=== PATIENT | female | born 1985 | race Caucasian/White ===

== ENCOUNTER 2021-03-19 17:39 | Emergency (ER) | payer OTHER, MEDICAID, SELFPAY ==
[2021-03-19 18:01] VITALS: PULSE 93; RESP 20; TEMP 37.1; O2SAT 100
--- NOTE | 2021-03-19 18:22 | ED.PSYCH ---
HPI - Psych <Adrien Barron DO - Last Filed: 03/22/21 17:27> General Chief Complaint: Psychiatric Symptoms Stated Complaint: Psych Time Seen by Provider: 03/19/21 18:15 Source: police Mode of arrival: Ambulatory Limitations: altered mental status History of Present Illness HPI Narrative: 35-year-old female former smoker with bipolar disorder presents with police and mental health professionals for evaluation of suicidal ideation. The patient has known bipolar disorder but has not been taking her medications and per her father has been using alcohol instead. Father states patient was prepared to consume all of her medications together along with alcohol but was stopped by her friend. Also per father she took a bottle of vodka and left last night and was not seen until today. Patient currently denies SI/HI but is confused, disheveled and unware of situation. She has been seen and evaluated by a mental health provider who request dispatch of the DCR for I TA due to grave disability and this is the plan upon medical clearance. Related Data Home Medications Medication Instructions Recorded Confirmed lactobacillus combination no.8 3 3,000 mmu cells PO DAILY 03/24/20 12/13/20 billion cell capsule Previous Rx's Medication Instructions Recorded hydroxyzine HCl 10 mg tablet See Rx Instructions PO BID PRN #90 08/16/20 tab lithium carbonate 150 mg capsule 150 mg PO DAILY #30 cap 12/05/20 lamotrigine 150 mg tablet 150 mg PO DAILY #30 tab 01/25/21 Allergies Allergy/AdvReac Type Severity Reaction Status Date / Time amoxicillin Allergy Intermediate Rash Verified 03/20/21 08:06 cefaclor [From [facility]] Allergy Intermediate rash Verified 10/10/20 08:51 Penicillins [PENICILLINS] Allergy Intermediate rash Verified 10/10/20 08:51 Review of Systems <Adrien Barron DO - Last Filed: 03/22/21 17:27> Review of Systems ROS Unobtainable: Unobtainable due to mental status/LOC <Mora Jones MD - Last Filed: 03/20/21 17:08> Constitutional Constitutional: Denies chills, Denies fatigue, Denies fever(s), Denies frequent falls, Denies lethargy and Denies weakness Eyes Eyes: Denies change in vision, Denies eye discharge, Denies irritation and Denies loss of vision ENT Ears, Nose, Mouth, and Throat: Denies change in voice, Denies dizziness, Denies neck pain, Denies sore throat and Denies throat swelling Cardiovascular Cardiovascular: Denies chest pain, Denies irregular heart rhythm, Denies lightheadedness, Denies palpitations, Denies dyspnea, Denies dyspnea on exertion and Denies orthopnea Respiratory Respiratory: Denies cough, Denies dyspnea, Denies dyspnea on exertion and Denies wheezing Gastrointestinal Gastrointestinal: Denies abdominal pain, Denies change in bowel habits, Denies diarrhea, Denies nausea and Denies vomiting Musculoskeletal Musculoskeletal: Denies neck pain and Denies numbness Integumentary/Breasts Skin/Breast: Denies pruritus, Denies erythema, Denies rash and Denies wounds Neurologic Neurologic: Denies behavioral changes, Denies confusion, Denies dizziness, Denies frequent falls, Denies loss of vision, Denies numbness and Denies weakness Psychiatric Psychiatric: Denies anxiety, Denies behavioral changes, Denies confusion, Denies depression, Denies homicidal ideation and Denies suicidal ideation Endocrine Endocrine: Denies fatigue, Denies flushing and Denies palpitations Hematologic/Lymphatic Hematologic/Lymphatic: Denies easy bruising Allergic/Immunologic Allergic/Immunologic: Denies urticaria, Denies throat swelling and Denies wheezing Patient History <Adrien Barron DO - Last Filed: 03/22/21 17:27> Social History Smoking Status: Former smoker Smoking Status: Former smoker Exam <Adrien Barron DO - Last Filed: 03/22/21 17:27> Narrative Exam Narrative: GENERAL: [35] year old patient appears stated age. Disheveled, uncooperative, poor eye contact HEAD: Atraumatic. Normocephalic. EYES: Pupils equal round and reactive. Extraocular motions intact. No scleral icterus. No injection or drainage. ENT: Nose without bleeding, purulent drainage. Throat without erythema, tonsillar hypertrophy or exudate. Airway patent. NECK: Trachea midline. Non tender CARDIOVASCULAR: Regular rate and rhythm without murmurs, gallops, or rubs. RESPIRATORY: Clear to auscultation. Breath sounds equal bilaterally. No wheezes, rales, or rhonchi. GASTROINTESTINAL: Abdomen soft, non-tender, nondistended. EXTREMITIES: No edema or joint tenderness. BACK: Nontender without deformity or crepitance. No flank tenderness. NEURO: Confused about circumstances, knows her name unaware of days SKIN: No rash or erythema of visible areas Initial Vital Signs Initial Vital Signs: Vital Signs Temperature 98.8 F 03/19/21 18:01 Pulse Rate 93 H 03/19/21 18:01 Respiratory Rate 20 03/19/21 18:01 Pulse Oximetry 100 03/19/21 18:01 <Mora Jones MD - Last Filed: 03/20/21 17:08> Initial Vital Signs Initial Vital Signs: Vital Signs Temperature 98.8 F 03/19/21 18:01 Pulse Rate 93 H 03/19/21 18:01 Respiratory Rate 20 03/19/21 18:01 Pulse Oximetry 100 03/19/21 18:01 Const General: cooperative and well developed Nutritional Appearance: well nourished HENMT Head: normocephalic and atraumatic Ears: external ears normal and TM's normal bilaterally Nose: external nose normal and No nasal discharge Face and sinus: sinuses nontender, face symmetric, no sinus tenderness and No dry mucous membranes Mouth: oral mucosae normal and moist mucous membranes Teeth and gingiva: dentition normal Throat: tonsils normal and uvula midline Eyes General: appearance normal, both eyes and all related structures Eyelids: eyelids normal Conjunctivae: conjunctivae normal Sclera: sclerae normal Pupils: PERRL EOM: EOM intact bilaterally Neck Neck: normal visual inspection, trachea midline, No lymphadenopathy, No midline deformity and No JVD Lymphatic: No lymphedema Chest Chest: normal inspection of the chest Resp Effort & Inspection: normal respiratory effort, able to speak in complete sentences, no respiratory distress and no use of accessory muscles Auscultation: clear to auscultation bilaterally, no rales, no rhonchi and no wheezes Cardio Rate: regular rate Rhythm: regular rhythm Heart Sounds: no click, no gallops, no murmurs and no rubs Pulses: normal peripheral pulses GI Inspection: non-distended Palpation: soft, no hepatosplenomegaly, No guarding, No pulsatile mass and No tender Auscultation: normal bowel sounds Back/Spine/Pelvis Back: No CVA tenderness Cervical Spine: cervical ROM normal and No pain with cervical ROM Thoracic/Lumbar Spine: thoracic and lumbar spine normal to inspection Skin General: no rashes or lesions noted, No jaundice and No petechiae Neuro General: patient alert, patient oriented x3, gait normal and no focal motor deficits Speech: speech normal Extrem General: full ROM, no clubbing, cyanosis or edema, no pedal edema and no calf tenderness Psych Appearance: well kempt Mental Status: mental status grossly normal Attitude: cooperative Thought Content: normal and suicidality Judgment: judgment good Course <Adrien Barron DO - Last Filed: 03/22/21 17:27> Course Course Narrative: Seen and evaluated very early on by mental health provider with police. I agree with her assessment that the patient is gravely disabled and would benefit from placement into a mental health facility. She has been medically cleared, is not voluntary and I have spoken with the DCR was obtaining her paperwork and will move forward Orders Ordered: Discontinued Medications Lamotrigine (Lamotrigine 100 Mg Tablet) 150 mg PO DAILY [facility] Last Admin: 03/20/21 08:21 Dose: 150 mg Documented by: DIAMOND [place] Carbonate ([place] 150 Mg Ir Capsule) 150 mg PO DAILY [facility] Last Admin: 03/20/21 08:21 Dose: 150 mg Documented by: DIAMOND Consultations Consultation #1: DCR has evaluated patient and plans to detain, many attempts at finding a bed, but none available tonight. Vital Signs Vital signs: Vital Signs - 8 hr 03/20/21 08:57 Pulse Rate 80 Respiratory Rate 16 Pulse Oximetry 96 <Mora Jones MD - Last Filed: 03/20/21 17:08> Orders Ordered: Discontinued Medications Lamotrigine (Lamotrigine 100 Mg Tablet) 150 mg PO DAILY [facility] Last Admin: 03/20/21 08:21 Dose: 150 mg Documented by: DIAMOND [place] Carbonate ([place] 150 Mg Ir Capsule) 150 mg PO DAILY [facility] Last Admin: 03/20/21 08:21 Dose: 150 mg Documented by: DIAMOND Reevaluation(s) Reevaluation #1: Care is assumed this morning. Patient had a quiet evening. Medical records including recent psychiatric visits are reviewed. As of December 13 patient was taking 150 mg of lamotrigine and 150 mg of lithium, 1-2 at HS, with a discussion of addition of quetiapine if she has increasing difficulty with sleep. Diagnoses include bipolar 1 disorder, obsessive-compulsive disorder, generalized anxiety disorder Will restart both lamotrigine and lithium this morning while were waiting to complete her full assessment and find a safe place for disposition from the emergency department Time: 07:49 Vital Signs Vital signs: Vital Signs - 8 hr 03/20/21 08:57 Pulse Rate 80 Respiratory Rate 16 Pulse Oximetry 96 MDM - Psych <Adrien Barron DO - Last Filed: 03/22/21 17:27> Lab Data Result diagrams: 03/19/21 18:21 03/19/21 18:21 Labs: Lab Results 03/19/21 03/19/21 03/19/21 Range/Units 18:21 18:21 18:21 WBC 11.4 H (4.5-11.0) X10^3/uL RBC 4.59 (4.0-5.2) X10^6/uL Hgb 14.1 (12.0-16.0) g/dL Hct 42.2 (36-46) % MCV 92.0 (80-100) fL MCH 30.8 (26-34) PG MCHC 33.5 (30-36) % RDW 13.2 (11.6-14.8) % Plt Count 289 (150-400) X10^3/uL Neut % (Auto) 76.5 H (50-75) % Lymph % (Auto) 13.2 L (25-40) % [place] % (Auto) 8.8 (3-14) % Eos % (Auto) 1.0 L (2-4) % Baso % (Auto) 0.5 (0-2) % Neut # (Auto) 8700 H (1530-2889) /uL Lymph # (Auto) 1500 (3782-2528) /uL [place] # (Auto) 1000 H (0-900) /uL Eos # (Auto) 100 (0-450) /uL Baso # (Auto) 100 (0-100) /uL Sodium 138 (137-145) mmol/L Potassium 4.1 (3.4-5.1) mmol/L Chloride 104 (98-107) mmol/L Carbon Dioxide 25 (22-32) mmol/L BUN 5 L (7-17) mg/dL Creatinine 0.61 (0.52-1.04) mg/dL Estimated GFR > 60.0 (>60) mL/min BUN/Creatinine Ratio 8.2 (6-22) Glucose 108 H (70-100) mg/dL Calcium 10.2 (8.4-10.2) mg/dL Total Bilirubin 0.8 (0.2-1.3) mg/dL AST 29 (14-36) IU/L ALT 19 (<35) IU/L Alkaline Phosphatase 75 (38-126) U/L Total Protein 7.9 (6.3-8.2) g/dL Albumin 4.7 (3.5-5.0) g/dL Globulin 3.2 (1.7-4.1) g/dL Albumin/Globulin Ratio 1.5 (1.0-2.8) TSH 1.47 (0.47-4.68) uIU/mL Free T4 1.20 (0.78-2.19) ng/dL Serum , Qual (Negative) Urine Color Urine Appearance Urine pH (4.5-8.0) Ur Specific [place] (1.000-1.035) Urine Protein (Negative) Urine Glucose (UA) (Negative) g/dL Urine Ketones (NEGATIVE) Urine Occult Blood (Negative) Urine Nitrate (Negative) Urine Bilirubin (NEGATIVE) Urine Urobilinogen (0.2) E.U./dL Ur Leukocyte Esterase (NEGATIVE) Urine RBC (0-5/HPF) Urine WBC (0-5/HPF) Ur Squamous Epith Cells (0-5/HPF) Amorphous Sediment Urine Bacteria (None) Hyaline Casts (None) Urine Mucus (Negative) Ur Culture Indicated? Salicylates < 1.0 (<20) mg/dL U Opiates 300ng/mL cut (Negative) Ur Oxycodone Screen (Negative) Urine Methadone Screen (Negative) Acetaminophen < 10 L (10-30) ug/mL Ur Barbiturates Screen (Negative) U Tricyclic Antidepress (Negative) Ur Phencyclidine Scrn (Negative) Ur Amphetamines Screen (Negative) U Methamphetamines Scrn (Negative) Ur MDMA Scrn (Ecstasy) (Negative) U Benzodiazepines Scrn (Negative) [place] < 0.2 L (0.6-1.2) mmol/L Urine Cocaine Screen (Negative) U Marijuana (THC) Screen (Negative) Ethyl Alcohol < 10 ( - 10) mg/dL SARS-CoV-2 (PCR) (Negative) 03/19/21 03/19/21 03/19/21 Range/Units 18:21 19:48 21:53 WBC (4.5-11.0) X10^3/uL RBC (4.0-5.2) X10^6/uL Hgb (12.0-16.0) g/dL Hct (36-46) % MCV (80-100) fL MCH (26-34) PG MCHC (30-36) % RDW (11.6-14.8) % Plt Count (150-400) X10^3/uL Neut % (Auto) (50-75) % Lymph % (Auto) (25-40) % [place] % (Auto) (3-14) % Eos % (Auto) (2-4) % Baso % (Auto) (0-2) % Neut # (Auto) (9511-9422) /uL Lymph # (Auto) (4403-9198) /uL [place] # (Auto) (0-900) /uL Eos # (Auto) (0-450) /uL Baso # (Auto) (0-100) /uL Sodium (137-145) mmol/L Potassium (3.4-5.1) mmol/L Chloride (98-107) mmol/L Carbon Dioxide (22-32) mmol/L BUN (7-17) mg/dL Creatinine (0.52-1.04) mg/dL Estimated GFR (>60) mL/min BUN/Creatinine Ratio (6-22) Glucose (70-100) mg/dL Calcium (8.4-10.2) mg/dL Total Bilirubin (0.2-1.3) mg/dL AST (14-36) IU/L ALT (<35) IU/L Alkaline Phosphatase (38-126) U/L Total Protein (6.3-8.2) g/dL Albumin (3.5-5.0) g/dL Globulin (1.7-4.1) g/dL Albumin/Globulin Ratio (1.0-2.8) TSH (0.47-4.68) uIU/mL Free T4 (0.78-2.19) ng/dL Serum , Qual Negative (Negative) Urine Color Urine Appearance Urine pH (4.5-8.0) Ur Specific [place] (1.000-1.035) Urine Protein (Negative) Urine Glucose (UA) (Negative) g/dL Urine Ketones (NEGATIVE) Urine Occult Blood (Negative) Urine Nitrate (Negative) Urine Bilirubin (NEGATIVE) Urine Urobilinogen (0.2) E.U./dL Ur Leukocyte Esterase (NEGATIVE) Urine RBC (0-5/HPF) Urine WBC (0-5/HPF) Ur Squamous Epith Cells (0-5/HPF) Amorphous Sediment Urine Bacteria (None) Hyaline Casts (None) Urine Mucus (Negative) Ur Culture Indicated? Salicylates (<20) mg/dL U Opiates 300ng/mL cut Negative (Negative) Ur Oxycodone Screen Negative (Negative) Urine Methadone Screen Negative (Negative) Acetaminophen (10-30) ug/mL Ur Barbiturates Screen Negative (Negative) U Tricyclic Antidepress Negative (Negative) Ur Phencyclidine Scrn Negative (Negative) Ur Amphetamines Screen Negative (Negative) U Methamphetamines Scrn Negative (Negative) Ur MDMA Scrn (Ecstasy) Negative (Negative) U Benzodiazepines Scrn Negative (Negative) [place] (0.6-1.2) mmol/L Urine Cocaine Screen Negative (Negative) U Marijuana (THC) Screen Negative (Negative) Ethyl Alcohol ( - 10) mg/dL SARS-CoV-2 (PCR) Negative (Negative) 03/19/21 Range/Units 21:53 WBC (4.5-11.0) X10^3/uL RBC (4.0-5.2) X10^6/uL Hgb (12.0-16.0) g/dL Hct (36-46) % MCV (80-100) fL MCH (26-34) PG MCHC (30-36) % RDW (11.6-14.8) % Plt Count (150-400) X10^3/uL Neut % (Auto) (50-75) % Lymph % (Auto) (25-40) % [place] % (Auto) (3-14) % Eos % (Auto) (2-4) % Baso % (Auto) (0-2) % Neut # (Auto) (8362-3364) /uL Lymph # (Auto) (4241-3096) /uL [place] # (Auto) (0-900) /uL Eos # (Auto) (0-450) /uL Baso # (Auto) (0-100) /uL Sodium (137-145) mmol/L Potassium (3.4-5.1) mmol/L Chloride (98-107) mmol/L Carbon Dioxide (22-32) mmol/L BUN (7-17) mg/dL Creatinine (0.52-1.04) mg/dL Estimated GFR (>60) mL/min BUN/Creatinine Ratio (6-22) Glucose (70-100) mg/dL Calcium (8.4-10.2) mg/dL Total Bilirubin (0.2-1.3) mg/dL AST (14-36) IU/L ALT (<35) IU/L Alkaline Phosphatase (38-126) U/L Total Protein (6.3-8.2) g/dL Albumin (3.5-5.0) g/dL Globulin (1.7-4.1) g/dL Albumin/Globulin Ratio (1.0-2.8) TSH (0.47-4.68) uIU/mL Free T4 (0.78-2.19) ng/dL Serum , Qual (Negative) Urine Color Yellow Urine Appearance Clear Urine pH 6.0 (4.5-8.0) Ur Specific [place] 1.025 (1.000-1.035) Urine Protein Negative (Negative) Urine Glucose (UA) Negative (Negative) g/dL Urine Ketones Negative (NEGATIVE) Urine Occult Blood Trace-intact (Negative) Urine Nitrate Negative (Negative) Urine Bilirubin Negative (NEGATIVE) Urine Urobilinogen 0.2 (0.2) E.U./dL Ur Leukocyte Esterase Negative (NEGATIVE) Urine RBC None seen (0-5/HPF) Urine WBC None seen (0-5/HPF) Ur Squamous Epith Cells 5-10 /hpf H (0-5/HPF) Amorphous Sediment 2+ Urine Bacteria Few (2-10) H (None) Hyaline Casts 0-1/lpf (None) Urine Mucus 2+ H (Negative) Ur Culture Indicated? Cult not indicated Salicylates (<20) mg/dL U Opiates 300ng/mL cut (Negative) Ur Oxycodone Screen (Negative) Urine Methadone Screen (Negative) Acetaminophen (10-30) ug/mL Ur Barbiturates Screen (Negative) U Tricyclic Antidepress (Negative) Ur Phencyclidine Scrn (Negative) Ur Amphetamines Screen (Negative) U Methamphetamines Scrn (Negative) Ur MDMA Scrn (Ecstasy) (Negative) U Benzodiazepines Scrn (Negative) [place] (0.6-1.2) mmol/L Urine Cocaine Screen (Negative) U Marijuana (THC) Screen (Negative) Ethyl Alcohol ( - 10) mg/dL SARS-CoV-2 (PCR) (Negative) <Mora Jones MD - Last Filed: 03/20/21 17:08> Medical Records Attestation: I reviewed the patient's medical records. Lab Data Attestation: I reviewed the patient's lab results. Labs: Lab Results 03/19/21 03/19/21 03/19/21 Range/Units 18:21 18:21 18:21 WBC 11.4 H (4.5-11.0) X10^3/uL RBC 4.59 (4.0-5.2) X10^6/uL Hgb 14.1 (12.0-16.0) g/dL Hct 42.2 (36-46) % MCV 92.0 (80-100) fL MCH 30.8 (26-34) PG MCHC 33.5 (30-36) % RDW 13.2 (11.6-14.8) % Plt Count 289 (150-400) X10^3/uL Neut % (Auto) 76.5 H (50-75) % Lymph % (Auto) 13.2 L (25-40) % [place] % (Auto) 8.8 (3-14) % Eos % (Auto) 1.0 L (2-4) % Baso % (Auto) 0.5 (0-2) % Neut # (Auto) 8700 H (2137-2527) /uL Lymph # (Auto) 1500 (0621-2073) /uL [place] # (Auto) 1000 H (0-900) /uL Eos # (Auto) 100 (0-450) /uL Baso # (Auto) 100 (0-100) /uL Sodium 138 (137-145) mmol/L Potassium 4.1 (3.4-5.1) mmol/L Chloride 104 (98-107) mmol/L Carbon Dioxide 25 (22-32) mmol/L BUN 5 L (7-17) mg/dL Creatinine 0.61 (0.52-1.04) mg/dL Estimated GFR > 60.0 (>60) mL/min BUN/Creatinine Ratio 8.2 (6-22) Glucose 108 H (70-100) mg/dL Calcium 10.2 (8.4-10.2) mg/dL Total Bilirubin 0.8 (0.2-1.3) mg/dL AST 29 (14-36) IU/L ALT 19 (<35) IU/L Alkaline Phosphatase 75 (38-126) U/L Total Protein 7.9 (6.3-8.2) g/dL Albumin 4.7 (3.5-5.0) g/dL Globulin 3.2 (1.7-4.1) g/dL Albumin/Globulin Ratio 1.5 (1.0-2.8) TSH 1.47 (0.47-4.68) uIU/mL Free T4 1.20 (0.78-2.19) ng/dL Serum , Qual (Negative) Urine Color Urine Appearance Urine pH (4.5-8.0) Ur Specific [place] (1.000-1.035) Urine Protein (Negative) Urine Glucose (UA) (Negative) g/dL Urine Ketones (NEGATIVE) Urine Occult Blood (Negative) Urine Nitrate (Negative) Urine Bilirubin (NEGATIVE) Urine Urobilinogen (0.2) E.U./dL Ur Leukocyte Esterase (NEGATIVE) Urine RBC (0-5/HPF) Urine WBC (0-5/HPF) Ur Squamous Epith Cells (0-5/HPF) Amorphous Sediment Urine Bacteria (None) Hyaline Casts (None) Urine Mucus (Negative) Ur Culture Indicated? Salicylates < 1.0 (<20) mg/dL U Opiates 300ng/mL cut (Negative) Ur Oxycodone Screen (Negative) Urine Methadone Screen (Negative) Acetaminophen < 10 L (10-30) ug/mL Ur Barbiturates Screen (Negative) U Tricyclic Antidepress (Negative) Ur Phencyclidine Scrn (Negative) Ur Amphetamines Screen (Negative) U Methamphetamines Scrn (Negative) Ur MDMA Scrn (Ecstasy) (Negative) U Benzodiazepines Scrn (Negative) [place] < 0.2 L (0.6-1.2) mmol/L Urine Cocaine Screen (Negative) U Marijuana (THC) Screen (Negative) Ethyl Alcohol < 10 ( - 10) mg/dL SARS-CoV-2 (PCR) (Negative) 03/19/21 03/19/21 03/19/21 Range/Units 18:21 19:48 21:53 WBC (4.5-11.0) X10^3/uL RBC (4.0-5.2) X10^6/uL Hgb (12.0-16.0) g/dL Hct (36-46) % MCV (80-100) fL MCH (26-34) PG MCHC (30-36) % RDW (11.6-14.8) % Plt Count (150-400) X10^3/uL Neut % (Auto) (50-75) % Lymph % (Auto) (25-40) % [place] % (Auto) (3-14) % Eos % (Auto) (2-4) % Baso % (Auto) (0-2) % Neut # (Auto) (1865-5676) /uL Lymph # (Auto) (2961-0563) /uL [place] # (Auto) (0-900) /uL Eos # (Auto) (0-450) /uL Baso # (Auto) (0-100) /uL Sodium (137-145) mmol/L Potassium (3.4-5.1) mmol/L Chloride (98-107) mmol/L Carbon Dioxide (22-32) mmol/L BUN (7-17) mg/dL Creatinine (0.52-1.04) mg/dL Estimated GFR (>60) mL/min BUN/Creatinine Ratio (6-22) Glucose (70-100) mg/dL Calcium (8.4-10.2) mg/dL Total Bilirubin (0.2-1.3) mg/dL AST (14-36) IU/L ALT (<35) IU/L Alkaline Phosphatase (38-126) U/L Total Protein (6.3-8.2) g/dL Albumin (3.5-5.0) g/dL Globulin (1.7-4.1) g/dL Albumin/Globulin Ratio (1.0-2.8) TSH (0.47-4.68) uIU/mL Free T4 (0.78-2.19) ng/dL Serum , Qual Negative (Negative) Urine Color Urine Appearance Urine pH (4.5-8.0) Ur Specific [place] (1.000-1.035) Urine Protein (Negative) Urine Glucose (UA) (Negative) g/dL Urine Ketones (NEGATIVE) Urine Occult Blood (Negative) Urine Nitrate (Negative) Urine Bilirubin (NEGATIVE) Urine Urobilinogen (0.2) E.U./dL Ur Leukocyte Esterase (NEGATIVE) Urine RBC (0-5/HPF) Urine WBC (0-5/HPF) Ur Squamous Epith Cells (0-5/HPF) Amorphous Sediment Urine Bacteria (None) Hyaline Casts (None) Urine Mucus (Negative) Ur Culture Indicated? Salicylates (<20) mg/dL U Opiates 300ng/mL cut Negative (Negative) Ur Oxycodone Screen Negative (Negative) Urine Methadone Screen Negative (Negative) Acetaminophen (10-30) ug/mL Ur Barbiturates Screen Negative (Negative) U Tricyclic Antidepress Negative (Negative) Ur Phencyclidine Scrn Negative (Negative) Ur Amphetamines Screen Negative (Negative) U Methamphetamines Scrn Negative (Negative) Ur MDMA Scrn (Ecstasy) Negative (Negative) U Benzodiazepines Scrn Negative (Negative) [place] (0.6-1.2) mmol/L Urine Cocaine Screen Negative (Negative) U Marijuana (THC) Screen Negative (Negative) Ethyl Alcohol ( - 10) mg/dL SARS-CoV-2 (PCR) Negative (Negative) 03/19/21 Range/Units 21:53 WBC (4.5-11.0) X10^3/uL RBC (4.0-5.2) X10^6/uL Hgb (12.0-16.0) g/dL Hct (36-46) % MCV (80-100) fL MCH (26-34) PG MCHC (30-36) % RDW (11.6-14.8) % Plt Count (150-400) X10^3/uL Neut % (Auto) (50-75) % Lymph % (Auto) (25-40) % [place] % (Auto) (3-14) % Eos % (Auto) (2-4) % Baso % (Auto) (0-2) % Neut # (Auto) (2375-1273) /uL Lymph # (Auto) (0384-8316) /uL [place] # (Auto) (0-900) /uL Eos # (Auto) (0-450) /uL Baso # (Auto) (0-100) /uL Sodium (137-145) mmol/L Potassium (3.4-5.1) mmol/L Chloride (98-107) mmol/L Carbon Dioxide (22-32) mmol/L BUN (7-17) mg/dL Creatinine (0.52-1.04) mg/dL Estimated GFR (>60) mL/min BUN/Creatinine Ratio (6-22) Glucose (70-100) mg/dL Calcium (8.4-10.2) mg/dL Total Bilirubin (0.2-1.3) mg/dL AST (14-36) IU/L ALT (<35) IU/L Alkaline Phosphatase (38-126) U/L Total Protein (6.3-8.2) g/dL Albumin (3.5-5.0) g/dL Globulin (1.7-4.1) g/dL Albumin/Globulin Ratio (1.0-2.8) TSH (0.47-4.68) uIU/mL Free T4 (0.78-2.19) ng/dL Serum , Qual (Negative) Urine Color Yellow Urine Appearance Clear Urine pH 6.0 (4.5-8.0) Ur Specific [place] 1.025 (1.000-1.035) Urine Protein Negative (Negative) Urine Glucose (UA) Negative (Negative) g/dL Urine Ketones Negative (NEGATIVE) Urine Occult Blood Trace-intact (Negative) Urine Nitrate Negative (Negative) Urine Bilirubin Negative (NEGATIVE) Urine Urobilinogen 0.2 (0.2) E.U./dL Ur Leukocyte Esterase Negative (NEGATIVE) Urine RBC None seen (0-5/HPF) Urine WBC None seen (0-5/HPF) Ur Squamous Epith Cells 5-10 /hpf H (0-5/HPF) Amorphous Sediment 2+ Urine Bacteria Few (2-10) H (None) Hyaline Casts 0-1/lpf (None) Urine Mucus 2+ H (Negative) Ur Culture Indicated? Cult not indicated Salicylates (<20) mg/dL U Opiates 300ng/mL cut (Negative) Ur Oxycodone Screen (Negative) Urine Methadone Screen (Negative) Acetaminophen (10-30) ug/mL Ur Barbiturates Screen (Negative) U Tricyclic Antidepress (Negative) Ur Phencyclidine Scrn (Negative) Ur Amphetamines Screen (Negative) U Methamphetamines Scrn (Negative) Ur MDMA Scrn (Ecstasy) (Negative) U Benzodiazepines Scrn (Negative) [place] (0.6-1.2) mmol/L Urine Cocaine Screen (Negative) U Marijuana (THC) Screen (Negative) Ethyl Alcohol ( - 10) mg/dL SARS-CoV-2 (PCR) (Negative) MDM Narrative Medical decision making narrative: 1300 patient remains cooperative but clearly still manic. She is agreeable to inpatient stay so voluntary admission to [facility] is currently being explored in light of review by DCR last night with available documentation. 3pm spoke with VASILE. Will evaluate the patient at this time. There is a bed available at [facility] if patient does end up being detained. My medical recommendation is being detained she is currently a danger to herself and not a good carlitos voluntary admission. 5pm patient is seen by VASILE Buck, he agrees with I TA. Bed is available at [facility] and patient has been excepted. Patient can be transported and arrived to [facility] after 9:00 p.m. tonight. Will have her remain in seclusion as she is now CHELSEA'd. She remains acutely manic and unable to carry on any type of meaningful discussion Restraint [id number]-[id number] <Adrien Barron DO - Last Filed: 03/22/21 17:27> Restraint Meim-iq-Ftan Evaluation Lhce-mt-Hjuo #1: Date: 03/19/21 Time: 18:15 Patient Appearance: Disheveled Level of Consciousness: Disoriented and Restless Speech Pattern: Rambling Mood Description: Anxious Ability to Follow Directions: Poor Thought Process: Illogical Respirations: Normal respiratory rate Cardiac: Regular Rate Circulation: Moves all extremities Restraint risks explained to patient: Yes Restraint risks explained to family: No Reaction to Intervention: Restless, Not Communicating Restraint Needs: Continue Restraints <Mora Jones MD - Last Filed: 03/20/21 17:08> Restraint Jucq-qo-Yajk Evaluation Rozl-tk-Asxq #2: Date: 03/20/21 Time: 10:06 Patient Appearance: Unkempt Level of Consciousness: Restless Speech Pattern: Pressured and Rambling Mood Description: Labile Ability to Follow Directions: Poor Hallucination Type: Auditory Thought Process: Disorganized Respirations: Normal respiratory rate Cardiac: Regular Rate Circulation: Moves all extremities Behavior necessitating restraint: Paranoid/Delusional Reaction to Intervention: Agitated, Constant Movement Restraint Needs: Continue Restraints Ttma-ka-Ssdl #3: Date: 03/20/21 Time: 14:42 Patient Appearance: Unkempt Level of Consciousness: Awake and Restless Mood Description: Hostile and Suspicious Ability to Follow Directions: Fair Thought Process: Looseness of association and Tangential Respirations: Normal respiratory rate Cardiac: Regular Rate Circulation: Moves all extremities Behavior necessitating restraint: Agitated Restraint Needs: Continue Restraints Discharge Plan Departure Patient Disposition: Xfer Psychiatric Hosp Clinical Impression: Acute psychosis, Bipolar 1 disorder Referrals: Scout Barbosa MD [Primary Care Provider] -
[2021-03-19 18:30] LABS: Add Manual Diff / Slide Review NO; Basophils Absolute Auto 100 /uL (0-100); Basophils Percent Auto 0.5 % (0-2); Eosinophils Absolute Auto 100 /uL (0-450); Hematocrit 42.2 % (36-46); Hemoglobin 14.1 g/dL (12.0-16.0); Lymphocytes Absolute Auto 1500 /uL (1100-4500); Lymphocytes Percent Auto 13.2 % (25-40); Mean Corpuscular HGB Conc 33.5 % (30-36); Mean Corpuscular Hemoglobin 30.8 PG (26-34); Monocytes Absolute Auto 1000 /uL (0-900); Monocytes Percent Auto 8.8 % (3-14); Neutrophils Absolute Auto 8700 /uL (1500-7000); Neutrophils Percent Auto 76.5 % (50-75); Platelet Count 289 X10^3/uL (150-400); Red Blood Cell Count 4.59 X10^6/uL (4.0-5.2); Red Cell Distribution Width 13.2 % (11.6-14.8); White Blood Cell Count 11.4 X10^3/uL (4.5-11.0)
[2021-03-19 18:46] LABS: Acetaminophen < 10 ug/mL (10-30); Alanine Aminotransferase 19 IU/L (<35); Albumin 4.7 g/dL (3.5-5.0); Albumin Globulin Ratio 1.5 (1.0-2.8); Alkaline Phosphatase 75 U/L (38-126); Aspartate Aminotransferase 29 IU/L (14-36); BUN Creatinine Ratio 8.2 (6-22); Bilirubin Total 0.8 mg/dL (0.2-1.3); Blood Urea Nitrogen 5 mg/dL (7-17); Calcium 10.2 mg/dL (8.4-10.2); Carbon Dioxide 25 mmol/L (22-32); Chloride 104 mmol/L (98-107); Estimated Glomerular Filt Rate > 60.0 mL/min (>60); Ethanol (ETOH) < 10 mg/dL; Globulin 3.2 g/dL (1.7-4.1); Glucose 108 mg/dL (70-100); HEMOLYSIS < 15 (0-50); Potassium 4.1 mmol/L (3.4-5.1); Salicylate < 1.0 mg/dL (<20); Sodium 138 mmol/L (137-145); Total Protein 7.9 g/dL (6.3-8.2)
[2021-03-19 19:03] LABS: Pregnancy Test Serum,Qual Negative (Negative)
[2021-03-19 19:30] LABS: Lithium < 0.2 mmol/L (0.6-1.2)
[2021-03-19 19:55] LABS: Thyroid Stimulating Hormone 1.47 uIU/mL (0.47-4.68)
[2021-03-19 20:31] LABS: COVID19 -Nasal RAPID Negative (Negative)
[2021-03-19 22:20] LABS: RBC Urine None Seen (0-5/HPF); WBC Urine None Seen (0-5/HPF)
[2021-03-19 22:21] LABS: Appearance Urine UA CLEAR; Bilirubin Urine UA NEGATIVE (NEGATIVE); Color Urine UA YELLOW; Glucose Urine UA NEGATIVE (Negative); Ketones Urine UA NEGATIVE (NEGATIVE); Leukocyte Esterase Urine UA NEGATIVE (NEGATIVE); Nitrite Urine UA NEGATIVE (Negative); Occult Blood Urine UA TRACE-INTACT (Negative); Protein Urine UA NEGATIVE (Negative); Specific Gravity Urine UA 1.025 (1.000-1.035); Urobilinogen Urine UA 0.2 E.U./dL (0.2)
[2021-03-19 22:22] LABS: Ur Creatinine Normal (Normal); Ur Specific Gravity Normal (Normal); Urine pH Normal (Normal)
[2021-03-19 22:23] LABS: UR Morphine/Opiate cutoff 300 Negative (Negative); Urine Amphetamines Negative (Negative); Urine Barbiturates Negative (Negative); Urine Benzodiazepines Negative (Negative); Urine Cocaine Negative (Negative); Urine MDMA Negative (Negative); Urine Methadone Negative (Negative); Urine Methamphetamines Negative (Negative); Urine Oxycodone Negative (Negative); Urine Phencyclidine Negative (Negative); Urine Tetrahydrocannabinol Negative (Negative); Urine Tricyclic Antidepressant Negative (Negative)
[2021-03-19 22:28] LABS: Squamous Epithelial Cell Urine 5-10 /HPF (0-5/HPF)
[2021-03-19 22:29] LABS: Amorphous Sediment Urine 2+; Bacteria Urine Few (2-10); Hyaline Casts Urine 0-1/LPF; Mucus Urine 2+ (Negative)
[2021-03-19 22:30] LABS: Culture Indicated Urine Cult Not Indicated
[2021-03-20] MEDS: LITHIUM 150 MG IR CAPSULE PO (08:21)
[2021-03-20] MEDS: lamoTRIgine 100 MG TABLET 150 MG PO (08:21)
--- NOTE | 2021-03-20 08:29 | PC.NURSE ---
Pt resting on stretcher on floor in room. appears disheveled and paper scrubs are covered in food. pt declining to change. breakfast provided. meds taken per MAR without difficulty. door closed with restraint order in place for safety. [place].
[2021-03-20 08:57] VITALS: PULSE 80; RESP 16; O2SAT 96
--- NOTE | 2021-03-20 09:15 | PC.NURSE ---
[facility]risis [facility] transferred up to IRMA Rodriguez.
--- NOTE | 2021-03-20 10:12 | PC.NURSE ---
Spoke with cementer machine applicator at [facility], Adwoa--after Codi ENGINE LATHE TENDER consults with pt packet can be sent to [facility] for impending bed openings today.
--- NOTE | 2021-03-20 13:44 | CM.SWNOTE ---
TUCK POINTER HELPER Note TUCK POINTER HELPER - Tour Conductor Assessment TUCK POINTER HELPER - Tour Conductor Assessment Start: 03/20/21 12:45 Freq: Status: Active Protocol: Document 03/20/21 12:45 LN (Rec: 03/20/21 13:44 LN [id number]) TUCK POINTER HELPER/Tour Conductor Assessment Time Spent with Patient Start date 03/20/21 Visit Start Time 12:30 End date 03/20/21 Visit End Time 12:45 Total time Care Management spent on 15 patient visit-in minutes Mental Health Screening Include Onset, Duration, Intensity Presenting Problem Patient presents to the ED by LE due to family's concerns of patient not taking her medication and concern for patient's mental health and well being. Precipitating Event(s) Family's concerns that patient is manic due to not taking her medication. Current Behavioral Health Provider(s) Leila Lane TUCK POINTER HELPER [phone] Facility, Provider, Ph. # [phone] Psych. Hx Mental Health and Chemical Patient has diagnosis of Dependency Bipolar 1 Disorder, Anxiety and Obsessive Compulsive Disorder. Patient does not report dx or hx of substance use. Patient states that she is prescribed Lamotrigine and Advil for medication. Psychiatric Hospitalizations (date(s)/ Per patient's records patient location) was [facility] at inpatient bed in January 2020 twice. None reported by patient. Psychosocial information & Support Patient is 35 yo female Systems reports she resides in [place] [facility] with her dog. Patient reports her daughter lives with patient's mother. School/Work None reported. Legal Concerns Legal Matters - Outstanding Issues None reported Mental Status Orientation (Person/Place/Time) Patient is alert and oriented to self, not to place, time or person. Stated Mood ok Affect (Congruent with Mood?) dysphoric, crying, full range and congruent with mood. Thought Content - Specify/Describe Patient denies obsessions, Obsessions, Delusions, Hallucinations delusions and hallucinations. Patient states that she was scared when the room was dark. Thought Processes (Omzejty-Fpjzboyo-Trss Circumstantial/ Loose. Xlcrybjs-Vqplxyax-Axcfgewrye- Ezisprqcnvechy-Byxxral-Ojpcfchabibz- Thought Blocking) Speech (Hgpgsf-Lgmq-Gdfhjxz-Rapid-Soft- rapid and soft Loud-Pressured) Motor (Txqsyy-Ozlmsnfit-Aotq-Other) not formally assessed. Patient flinches eyes and looks around room. Insight (Dubv-Zcvw-Zbtc/Limited) Poor/limited Judgement (Zbpv-Lpap-Zojf/Limited) Poor/limited Impulse Control (Adequate-Impaired) Adequate during assessment Memory (Nzhatosgx-Ckxqkz-Jsacae, Impaired, not formally Impaired-Intact) assessed. Patient states confusion in differentiating 7 months and 7 years. Patient states that she wants to be home by Easter. Concentration (Intact-Impaired) Intact for assessment Attention (Intact-Impaired) Intact for assessment. Behavior (Appropriate-Inappropriate) Appropriate. Additional Comment Patient presents as quiet, speaking rapidly and difficult to understand. Patient answers few questions directly . Risk Assessment Suicidal Ideation (Plan) No Homicidal Ideation (Plan) No Comment Patient denies SI and HI. Intervention Intervention TUCK POINTER HELPER receives consult to meet with patient. Prior to TUCK POINTER HELPER consult patient was assessed by Mariely FARRAR at on 03/19/21 and DCR was dispatched due to grave disability when patient was medically clear on , patient met criteria but no beds were identified. TUCK POINTER HELPER enters room to meet with patient. Patient sits on her bed while meeting with TUCK POINTER HELPER. Patient states that her dad brought her here because he thought something was wrong with her. Patient denies that there is anything wrong and spoke rapidly and softly inaudible to TUCK POINTER HELPER for most of assessment. Patient is tearful when talking about her family and states that her father told her 7 years ago to not come back and later stated that it was 7 months ago. Patient states she will go to inpatient hosptial but denies SI and HI. It is the opinion of this TUCK POINTER HELPER that this patient is not safe for d/c home and would benefit from inpatient psychiatric hospitalization. TUCK POINTER HELPER will contact [facility] for further DCR consult to detain patient pending inpatient bed openings. TUCK POINTER HELPER reviews the above with KRISTIN Cardona and ED Provider Dr. Jones who indicate agreement at this time. Plan RA Plan TUCK POINTER HELPER to contact [facility] to consult with DCR for [facility] detainment for pending inpatient bed openings. IRMA Hill
--- NOTE | 2021-03-20 15:02 | PC.NURSE ---
Pt monitored today 1:1 by technical publications writer. Pt is A&Ox2, unaware of date belieivng next week is Ella. Hyper sexual behavior noted this a.m. performing self masturbation in room for approximately an hour period. Pt offered a change of clothes and shower this a.m. declined at first. RN able to shower patient later this a.m. after patient agreeable. RN Noted that patient not able to wash herself or perform ADL's needing reminding that deodarant goes underneath the arms, not on top of clothes or in her hair. She was in front of the toilet and encouraged to use the bathroom, asking Can I pee in this? holding up a emesis bag. Patient able to answer simple yes and no questions, but often diverging to other topics rapidly. Asking about being forgiven. Explained to patient where she was the plan of care. She appears aggreeable and in consent with care, however then states she thought she was in [facility]. This afternoon patient removing her clothes, urinating on the floor despite being offered to go to the bathroom. Assisted with cleaning her up and replacing new disposable scrubs. Shorlty after, she removes her clothes again and is observed tracing her hands on the méndez. Continued to reorient.
--- NOTE | 2021-03-20 16:02 | PC.NURSE ---
Pt has undressed herself and has been for the last eight minutes. She is fixated on the sensor for the badge on the inside of the room.
--- NOTE | 2021-03-20 16:41 | PC.NURSE ---
Pt. was complying to wearing clothes while speaking to the crisis intervention. When she was finished she took her pants back off.
--- NOTE | 2021-03-20 16:42 | PC.NURSE ---
Pt being interviews by VASILE Rees with ipad. tolerating well
--- NOTE | 2021-03-20 16:58 | CM.SWNOTE ---
ORTHOPEDIC TECH Note ORTHOPEDIC TECH calls [facility] Charge Nurse Adwoa (Ph#. [phone]). Nurse reports that [facility] has an inpatient bed if patient is detained by DCR. ORTHOPEDIC TECH calls Cabrera DIAMOND is dispatched to conduct new DCR assessment. ORTHOPEDIC TECH informs Cabrera that [facility] has an inpatient bed if patient is detained. Cabrera states he will conduct assessment shortly. ORTHOPEDIC TECH calls design teacher Dariana Parikh. Dariana reports that she last saw patient in December 2020. Dariana states that patient sees IRMA Barber as a private practice therapist and Shannan is aware patient is at the ED. Dariana recommends patient utilizes psychiatric inpatient bed. ORTHOPEDIC TECH reviews reports from KRISTIN Verdin that patient is undressing and ORTHOPEDIC TECH observes patient undressed, tracing on méndez and walking around the room. ORTHOPEDIC TECH calls mother Stephanie ( ) Stephanie reports that patient has ?manic episodes? when she does not take her medication and drinks alcohol. Stephanie reports that patient recently went to [place] over the weekend and was reportedly chain smoking. Stephanie reports that patient is a good attentive mother of her 4 yo daughter Francine and Francine is currently in the care of her biological father. Stephanie states she would like patient to utilize psychiatric inpatient hospitalization. VASILE Rees assesses patient, and patient meets criteria for [facility]. Plan: d/c to psychiatric involuntary inpatient hospitalization pending bed openings. IRMA Hill
--- NOTE | 2021-03-20 17:58 | PC.NURSE ---
Pt's friend Jyoti on the phone asking if she can come get patients house keys so she can take care of her cat. Received permission from patient that Jyoti can come and take her keys. Jyoti verified over the phone a specific gill chain that pt keeps on her gill ring.
--- NOTE | 2021-03-20 18:18 | PC.NURSE ---
Pt. ate 60% of her dinner and drank 400cc of water. She put her shirt back on and is oriented to her mattress on the floor.
== END 2021-03-20 20:15 ==
PROVIDERS: Emergency Medicine; Emergency Provider Emergency Medicine; PCP Family Medicine
DX: F23 Brief psychotic disorder (principal); F31.9 Bipolar disorder, unspecified
CPT/HCPCS: 80053; 80178; 80305; 80320; 80329; 81001; 84439; 84443; 84703; 85025; 87635; 99285; C9803; G0480

== ENCOUNTER → 2021-04-10 10:57 | Outpatient (CLI) | payer OTHER, MEDICAID, SELFPAY ==
[2021-04-10 11:45] LABS: Lithium 0.9 mmol/L (0.6-1.2)
== END ==
PROVIDERS: PCP Family Medicine; Referring Provider Nurse Practitioner Psychiatric/Mental Health; Visit Provider Nurse Practitioner Psychiatric/Mental Health
DX: F31.2 Bipolar disorder, current episode manic severe with psychotic features (principal)
CPT/HCPCS: 36415; 80178

== ENCOUNTER → 2021-05-15 09:58 | Outpatient (CLI) | payer OTHER, MEDICAID, SELFPAY ==
[2021-05-15 11:51] LABS: Lithium 0.8 mmol/L (0.6-1.2)
== END ==
PROVIDERS: PCP Family Medicine; Referring Provider Nurse Practitioner Psychiatric/Mental Health; Visit Provider Nurse Practitioner Psychiatric/Mental Health
DX: F31.9 Bipolar disorder, unspecified (principal); Z51.81 Encounter for therapeutic drug level monitoring
CPT/HCPCS: 36415; 80178

== ENCOUNTER → 2021-07-19 09:57 | Outpatient (CLI) | payer OTHER, MEDICAID, SELFPAY ==
[2021-07-19 11:10] LABS: Lithium 1.3 mmol/L (0.6-1.2)
== END ==
PROVIDERS: PCP Family Medicine; Referring Provider Nurse Practitioner Psychiatric/Mental Health; Visit Provider Nurse Practitioner Psychiatric/Mental Health
DX: Z51.81 Encounter for therapeutic drug level monitoring (principal)
CPT/HCPCS: 36415; 80178

== ENCOUNTER → 2021-09-18 10:32 | Outpatient (CLI) | payer OTHER, MEDICAID, SELFPAY | PROVIDERS: Referring Provider Nurse Practitioner Psychiatric/Mental Health; Visit Provider Nurse Practitioner Psychiatric/Mental Health | DX: F31.74 Bipolar disorder, in full remission, most recent episode manic (principal); Z51.81 Encounter for therapeutic drug level monitoring | CPT/HCPCS: 36415; 80178; 99211 ==

== ENCOUNTER → 2022-01-04 11:16 | Outpatient (CLI) | payer OTHER, MEDICAID, SELFPAY ==
[2022-01-04 11:47] LABS: Add Manual Diff / Slide Review NO; Basophils Absolute Auto 0 /uL (0-100); Basophils Percent Auto 0.8 % (0-2); Eosinophils Absolute Auto 200 /uL (0-450); Eosinophils Percent Auto 2.9 % (2-4); Hematocrit 40.4 % (36-46); Hemoglobin 13.7 g/dL (12.0-16.0); Lymphocytes Absolute Auto 1100 /uL (1100-4500); Lymphocytes Percent Auto 19.1 % (25-40); Mean Corpuscular Hemoglobin 30.6 PG (26-34); Mean Corpuscular Volume 90.2 fL (80-100); Monocytes Absolute Auto 600 /uL (0-900); Monocytes Percent Auto 10.6 % (3-14); Neutrophils Absolute Auto 4000 /uL (1500-7000); Neutrophils Percent Auto 66.6 % (50-75); Platelet Count 269 X10^3/uL (150-400); Red Blood Cell Count 4.48 X10^6/uL (4.0-5.2); Red Cell Distribution Width 12.7 % (11.6-14.8)
[2022-01-04 12:40] LABS: Lithium 0.7 mmol/L (0.6-1.2)
[2022-01-04 12:42] LABS: Alanine Aminotransferase 12 IU/L (<35); Albumin 4.4 g/dL (3.5-5.0); Albumin Globulin Ratio 1.5 (1.0-2.8); Alkaline Phosphatase 75 U/L (38-126); Aspartate Aminotransferase 16 IU/L (14-36); BUN Creatinine Ratio 12.9 (6-22); Bilirubin Total 0.4 mg/dL (0.2-1.3); Blood Urea Nitrogen 9 mg/dL (7-17); Calcium 10.1 mg/dL (8.4-10.2); Carbon Dioxide 27 mmol/L (22-32); Chloride 107 mmol/L (98-107); Estimated Glomerular Filt Rate > 60.0 mL/min (>60); Globulin 2.9 g/dL (1.7-4.1); Glucose 99 mg/dL (70-100); HEMOLYSIS < 15 (0-50); Potassium 4.1 mmol/L (3.4-5.1); Sodium 140 mmol/L (137-145); Total Protein 7.3 g/dL (6.3-8.2)
[2022-01-04 12:56] LABS: Prolactin 167.3 ng/mL (3.0-18.6)
[2022-01-04 12:57] LABS: Free T4, Direct Thyroxine 1.14 ng/dL (0.78-2.19)
[2022-01-04 13:11] LABS: Thyroid Stimulating Hormone 2.43 uIU/mL (0.47-4.68)
== END ==
PROVIDERS: Referring Provider Nurse Practitioner Psychiatric/Mental Health; Visit Provider Nurse Practitioner Psychiatric/Mental Health
DX: Z51.81 Encounter for therapeutic drug level monitoring (principal); Z79.899 Other long term (current) drug therapy
CPT/HCPCS: 36415; 80053; 80178; 84146; 84439; 84443; 85025

== ENCOUNTER → 2022-02-13 09:35 | Outpatient (CLI) | payer OTHER, MEDICAID, SELFPAY ==
[2022-02-13 10:55] LABS: Cholesterol 147 mg/dL (140-199); HDL Cholesterol 48 mg/dL (40-60); LDL Cholesterol Calculated 87 mg/dL (<100); Triglycerides 58 mg/dL (35-150)
[2022-02-13 10:56] LABS: Lithium 0.9 mmol/L (0.6-1.2)
[2022-02-13 11:03] LABS: Prolactin 155.7 ng/mL (3.0-18.6)
== END ==
PROVIDERS: Referring Provider Psychiatry & Neurology Psychiatry; Visit Provider Psychiatry & Neurology Psychiatry
DX: Z79.899 Other long term (current) drug therapy (principal); T88.7XXA Unspecified adverse effect of drug or medicament, initial encounter; Z51.81 Encounter for therapeutic drug level monitoring; F31.74 Bipolar disorder, in full remission, most recent episode manic; F41.9 Anxiety disorder, unspecified; F42.9 Obsessive-compulsive disorder, unspecified
CPT/HCPCS: 36415; 80061; 80178; 84146; 96372

== ENCOUNTER → 2022-06-11 10:38 | Outpatient (CLI) | payer OTHER, MEDICAID, SELFPAY ==
[2022-06-11 12:15] LABS: Hemoglobin A1C% w Est Avg Glu 5.2 % (4.0-6.0)
[2022-06-11 13:04] LABS: Alanine Aminotransferase 12 IU/L (<35); Albumin 4.7 g/dL (3.5-5.0); Albumin Globulin Ratio 1.5 (1.0-2.8); Alkaline Phosphatase 76 U/L (38-126); Aspartate Aminotransferase 18 IU/L (14-36); BUN Creatinine Ratio 9.6 (6-22); Bilirubin Total 0.7 mg/dL (0.2-1.3); Blood Urea Nitrogen 7 mg/dL (7-17); Carbon Dioxide 25 mmol/L (22-32); Chloride 107 mmol/L (98-107); Estimated Glomerular Filt Rate > 60 mL/min (>60); Globulin 3.2 g/dL (1.7-4.1); Glucose 90 mg/dL (70-100); HEMOLYSIS < 15 (0-50); Potassium 4.1 mmol/L (3.4-5.1); Sodium 143 mmol/L (137-145); Total Protein 7.9 g/dL (6.3-8.2)
[2022-06-11 13:15] LABS: Prolactin 115.4 ng/mL (3.0-18.6)
[2022-06-11 14:06] LABS: TSH w/ Reflex to FT4 1.07 uIU/mL (0.47-4.68)
== END ==
PROVIDERS: Referring Provider Psychiatry & Neurology Psychiatry; Visit Provider Psychiatry & Neurology Psychiatry
DX: E11.9 Type 2 diabetes mellitus without complications (principal); F31.74 Bipolar disorder, in full remission, most recent episode manic; Z51.81 Encounter for therapeutic drug level monitoring; Z79.899 Other long term (current) drug therapy; T88.7XXA Unspecified adverse effect of drug or medicament, initial encounter
CPT/HCPCS: 36415; 80053; 80178; 83036; 84146; 84443

== ENCOUNTER → 2023-07-16 09:17 | Outpatient (CLI) | payer OTHER, MEDICAID, SELFPAY ==
[2023-07-16 11:33] LABS: Alanine Aminotransferase 21 IU/L (<35); Albumin 4.2 g/dL (3.5-5.0); Albumin Globulin Ratio 1.5 (1.0-2.8); Alkaline Phosphatase 63 U/L (38-126); Aspartate Aminotransferase 23 IU/L (14-36); BUN Creatinine Ratio 7.9 (6-22); Bilirubin Total 0.6 mg/dL (0.2-1.3); Blood Urea Nitrogen 5 mg/dL (7-17); Calcium 9.1 mg/dL (8.4-10.2); Carbon Dioxide 24 mmol/L (22-32); Chloride 105 mmol/L (98-107); Cholesterol 151 mg/dL (140-199); Estimated Glomerular Filt Rate > 60 mL/min (>60); Globulin 2.8 g/dL (1.7-4.1); Glucose 89 mg/dL (70-100); HDL Cholesterol 55 mg/dL (40-60); HEMOLYSIS < 15 (0-50); LDL Cholesterol Calculated 81 mg/dL (<100); Potassium 3.7 mmol/L (3.4-5.1); Sodium 138 mmol/L (137-145); Triglycerides 73 mg/dL (35-150)
[2023-07-16 11:48] LABS: Prolactin 74.1 ng/mL (3.0-18.6)
[2023-07-16 11:50] LABS: Free T4, Direct Thyroxine 1.28 ng/dL (0.78-2.19)
[2023-07-16 12:04] LABS: Thyroid Stimulating Hormone 1.52 uIU/mL (0.47-4.68)
[2023-07-17 05:16] LABS: x Labcorp Estim. Avg Glu (eAG) 103 mg/dL (.); x Labcorp Hemoglobin A1c 5.2 % (4.8-5.6)
== END ==
PROVIDERS: Referring Provider Psychiatry & Neurology Psychiatry; Visit Provider Psychiatry & Neurology Psychiatry
DX: F31.74 Bipolar disorder, in full remission, most recent episode manic; Z79.899 Other long term (current) drug therapy; E22.1 Hyperprolactinemia
CPT/HCPCS: 80053; 80061; 80178; 83036; 84146; 84439; 84443

== ENCOUNTER → 2023-08-27 09:37 | Outpatient (CLI) | payer OTHER, MEDICAID, SELFPAY ==
[2023-08-27 11:52] LABS: Lithium 0.6 mmol/L (0.6-1.2)
== END ==
PROVIDERS: Referring Provider Psychiatry & Neurology Psychiatry; Visit Provider Psychiatry & Neurology Psychiatry
DX: F31.74 Bipolar disorder, in full remission, most recent episode manic (principal); Z51.81 Encounter for therapeutic drug level monitoring; Z79.899 Other long term (current) drug therapy
CPT/HCPCS: 36415; 80178

== ENCOUNTER → 2024-02-19 09:53 | Outpatient (CLI) | payer MEDICARE, MEDICAID, SELFPAY ==
[2024-02-19 10:51] LABS: Add Manual Diff / Slide Review NO; Basophils Absolute Auto 100 /uL (0-100); Basophils Percent Auto 0.5 % (0-2); Eosinophils Absolute Auto 100 /uL (0-450); Eosinophils Percent Auto 1.3 % (2-4); Hematocrit 40.4 % (36-46); Hemoglobin 13.8 g/dL (12.0-16.0); Lymphocytes Absolute Auto 900 /uL (1100-4500); Lymphocytes Percent Auto 8.6 % (25-40); Mean Corpuscular HGB Conc 34.3 % (30-36); Mean Corpuscular Hemoglobin 31.1 PG (26-34); Mean Corpuscular Volume 90.9 fL (80-100); Monocytes Absolute Auto 1100 /uL (0-900); Monocytes Percent Auto 9.8 % (3-14); Neutrophils Absolute Auto 8700 /uL (1500-7000); Neutrophils Percent Auto 79.8 % (50-75); Platelet Count 273 X10^3/uL (150-400); Red Blood Cell Count 4.44 X10^6/uL (4.0-5.2); Red Cell Distribution Width 12.5 % (11.6-14.8); White Blood Cell Count 10.9 X10^3/uL (4.5-11.0)
[2024-02-19 11:26] LABS: Alanine Aminotransferase 20 IU/L (<35); Albumin 4.3 g/dL (3.5-5.0); Albumin Globulin Ratio 1.4 (1.0-2.8); Alkaline Phosphatase 75 U/L (38-126); Aspartate Aminotransferase 24 IU/L (14-36); BUN Creatinine Ratio 11.8 (6-22); Bilirubin Total 0.8 mg/dL (0.2-1.3); Blood Urea Nitrogen 8 mg/dL (7-17); Calcium 9.5 mg/dL (8.4-10.2); Carbon Dioxide 25 mmol/L (22-32); Chloride 105 mmol/L (98-107); Cholesterol 143 mg/dL (140-199); Estimated Glomerular Filt Rate > 60 mL/min (>60); Globulin 3.1 g/dL (1.7-4.1); Glucose 90 mg/dL (70-100); HDL Cholesterol 55 mg/dL (40-60); HEMOLYSIS < 15 (0-50); LDL Cholesterol Calculated 75 mg/dL (<100); Potassium 4.2 mmol/L (3.4-5.1); Sodium 137 mmol/L (137-145); Total Protein 7.4 g/dL (6.3-8.2); Triglycerides 65 mg/dL (35-150)
[2024-02-19 11:38] LABS: Hemoglobin A1C% w Est Avg Glu 5.1 % (4.0-6.0)
== END ==
PROVIDERS: Psychiatry & Neurology Child & Adolescent Psychiatry; Referring Provider Psychiatry & Neurology Psychiatry; Visit Provider Psychiatry & Neurology Psychiatry
DX: F31.74 Bipolar disorder, in full remission, most recent episode manic (principal); E22.1 Hyperprolactinemia; Z51.81 Encounter for therapeutic drug level monitoring; Z79.899 Other long term (current) drug therapy
CPT/HCPCS: 36415; 80053; 80061; 80178; 83036; 84443; 85025; 99211

== ENCOUNTER → 2024-05-04 13:31 | Outpatient (CLI) | payer MEDICARE, MEDICAID, SELFPAY | PROVIDERS: Visit Provider Student in an Organized Health Care Education/Training Program | DX: J02.9 Acute pharyngitis, unspecified (principal); F31.74 Bipolar disorder, in full remission, most recent episode manic; E22.1 Hyperprolactinemia; F41.9 Anxiety disorder, unspecified; G25.89 Other specified extrapyramidal and movement disorders; T50.905A Adverse effect of unspecified drugs, medicaments and biological substances, initial encounter; G47.00 Insomnia, unspecified; Z79.899 Other long term (current) drug therapy; Z65.3 Problems related to other legal circumstances | CPT/HCPCS: 87070; 90833; 99214 ==

== ENCOUNTER → 2024-12-11 10:27 | Outpatient (CLI) | payer MEDICARE, MEDICAID, SELFPAY ==
[2024-12-11 11:38] LABS: Add Manual Diff / Slide Review NO; Basophils Absolute Auto 0 /uL (0-100); Basophils Percent Auto 0.7 % (0-2); Eosinophils Absolute Auto 200 /uL (0-450); Eosinophils Percent Auto 2.2 % (2-4); Hematocrit 40.3 % (36-46); Hemoglobin 13.9 g/dL (12.0-16.0); Lymphocytes Absolute Auto 1300 /uL (1100-4500); Mean Corpuscular HGB Conc 34.3 % (30-36); Mean Corpuscular Hemoglobin 31.3 PG (26-34); Mean Corpuscular Volume 91.1 fL (80-100); Monocytes Absolute Auto 700 /uL (0-900); Monocytes Percent Auto 10.5 % (3-14); Neutrophils Absolute Auto 4800 /uL (1500-7000); Neutrophils Percent Auto 68.6 % (50-75); Platelet Count 269 X10^3/uL (150-400); Red Blood Cell Count 4.43 X10^6/uL (4.0-5.2); Red Cell Distribution Width 13.3 % (11.6-14.8); White Blood Cell Count 7.1 X10^3/uL (4.5-11.0)
[2024-12-11 12:33] LABS: Lithium 0.9 mmol/L (0.6-1.2)
[2024-12-11 12:36] LABS: Alanine Aminotransferase 21 IU/L (<35); Albumin 4.6 g/dL (3.5-5.0); Albumin Globulin Ratio 1.9 (1.0-2.8); Alkaline Phosphatase 61 U/L (38-126); Aspartate Aminotransferase 25 IU/L (14-36); BUN Creatinine Ratio 9.1 (6-22); Bilirubin Total 0.7 mg/dL (0.2-1.3); Blood Urea Nitrogen 6 mg/dL (7-17); Calcium 9.4 mg/dL (8.4-10.2); Carbon Dioxide 22 mmol/L (22-32); Chloride 106 mmol/L (98-107); Estimated Glomerular Filt Rate > 60 mL/min (>60); Globulin 2.4 g/dL (1.7-4.1); Glucose 93 mg/dL (70-100); HEMOLYSIS < 15 (0-50); Potassium 4.6 mmol/L (3.4-5.1); Sodium 137 mmol/L (137-145)
[2024-12-11 12:52] LABS: Prolactin 100.6 ng/mL (3.0-18.6)
[2024-12-11 13:08] LABS: TSH w/ Reflex to FT4 1.38 uIU/mL (0.47-4.68)
== END ==
PROVIDERS: Referring Provider Psychiatry & Neurology Psychiatry; Visit Provider Psychiatry & Neurology Psychiatry
DX: E22.1 Hyperprolactinemia (principal); F31.74 Bipolar disorder, in full remission, most recent episode manic; Z79.899 Other long term (current) drug therapy
CPT/HCPCS: 36415; 80053; 80178; 83036; 84146; 84443; 85025

== ENCOUNTER → 2025-08-30 09:35 | Outpatient (CLI) | payer MEDICARE, MEDICAID, SELFPAY ==
[2025-08-30 10:42] LABS: Add Manual Diff / Slide Review NO; Hematocrit 41.2 % (36-46); Hemoglobin 14.1 g/dL (12.0-16.0); Lymphocytes Absolute Auto 1100 /uL (1100-4500); Mean Corpuscular HGB Conc 34.2 % (30-36); Mean Corpuscular Hemoglobin 30.6 PG (26-34); Mean Corpuscular Volume 89.6 fL (80-100); Platelet Count 308 X10^3/uL (150-400)
[2025-08-30 10:54] LABS: Hemoglobin A1C% w Est Avg Glu 5.2 % (4.0-6.0)
[2025-08-30 11:22] LABS: Lithium 0.8 mmol/L (0.6-1.2)
[2025-08-30 11:25] LABS: Alanine Aminotransferase 15 IU/L (<35); Albumin 4.7 g/dL (3.5-5.0); Albumin Globulin Ratio 1.7 (1.0-2.8); Alkaline Phosphatase 68 U/L (38-126); Blood Urea Nitrogen 11 mg/dL (7-17); Calcium 9.5 mg/dL (8.4-10.2); Carbon Dioxide 22 mmol/L (22-32); Chloride 107 mmol/L (98-107); Estimated Glomerular Filt Rate > 60 mL/min (>60); Globulin 2.8 g/dL (1.7-4.1); Glucose 94 mg/dL (70-99); HEMOLYSIS < 15 (0-50); Potassium 4.7 mmol/L (3.4-5.1); Sodium 138 mmol/L (137-145); Total Protein 7.5 g/dL (6.3-8.2)
[2025-08-30 11:56] LABS: TSH w/ Reflex to FT4 1.03 uIU/mL (0.47-4.68)
== END ==
PROVIDERS: PCP Family Medicine; Referring Provider Psychiatry & Neurology Psychiatry; Visit Provider Psychiatry & Neurology Psychiatry
DX: E22.1 Hyperprolactinemia (principal); Z79.899 Other long term (current) drug therapy; F31.74 Bipolar disorder, in full remission, most recent episode manic; F41.9 Anxiety disorder, unspecified; G25.89 Other specified extrapyramidal and movement disorders; G47.00 Insomnia, unspecified; T50.905A Adverse effect of unspecified drugs, medicaments and biological substances, initial encounter; Z65.3 Problems related to other legal circumstances
CPT/HCPCS: 36415; 80053; 80178; 83036; 84146; 84443; 85025; 99214